=== PATIENT | male | born 1950 | race Caucasian/White ===

== ENCOUNTER 2018-04-18 00:49 | Outpatient (CLI) | payer MEDICARE, MEDICAID, SELFPAY ==
--- NOTE | 2018-04-18 15:27 | DI.US_ITS ---
SYMPTOM/DIAGNOSIS: VARICOSE VEINS BOTH LOWER LEGS, PAIN, I83.813, S/P SURGERY, DVT DUPLEX VENOUS ULTRASOUND LEFT LOWER EXTREMITY: Duplex evaluation of the deep venous system of the left lower extremity was performed according to the usual protocol. There is no evidence of deep venous thrombosis. There is occlusive thrombus in the left greater saphenous vein approximately extending to less than 1 cm. from the CFV junction. No other significant superficial thrombus identified.
--- NOTE | 2018-04-18 16:42 | DI.VRAD_ITS ---
EXAM: US Left Duplex Lower Extremity Veins, Limited EXAM DATE/TIME: 04/18/2018 4:17 PM CLINICAL HISTORY: 67 years old, male; Pain; Leg, upper; Left; Prior surgery; Surgery date: 3-7 days post-operative; Surgery type: Left rf ablation of saph vein TECHNIQUE: Real-time Duplex ultrasound scan of the Left lower extremity with 2-D vazquez scale, color Doppler flow and spectral waveform analysis. Limited exam focused on the left lower extremity veins. COMPARISON: No relevant prior studies available. FINDINGS: Left deep veins: Unremarkable. The common femoral, femoral and popliteal veins are patent without thrombus. Normal compressibility, augmentation response and Doppler waveforms. Left superficial veins: Thrombus greater saphenous vein to the knee. Saphenofemoral junction is patent. Soft tissues: Unremarkable. IMPRESSION: 1. No DVT left lower extremity. 2. Thrombus greater saphenous vein to the knee. Dictated and Authenticated by: Fawad Montano MD. Ordering:RISHI CRAWFORD MD
== END 2018-04-18 01:09 ==
PROVIDERS: PCP General Practice; Visit Provider Surgery Vascular Surgery
DX: M79.662 Pain in left lower leg (principal); I82.812 Embolism and thrombosis of superficial veins of left lower extremity; I83.813 Varicose veins of bilateral lower extremities with pain; M79.661 Pain in right lower leg
CPT/HCPCS: 93971

== ENCOUNTER 2019-09-09 02:28 | Outpatient (CLI) | payer OTHER, SELFPAY ==
[2019-09-09 10:36] LABS: ALT 20 U/L (16-63); AST 17 U/L (15-37); Albumin 4.1 g/dL (3.4-5.0); Alkaline Phosphatase 44 U/L (46-116); Anion Gap 6.2 mmol/L (3-11); BUN 16 mg/dL (7-18); Bilirubin, Total 1.4 mg/dL (0.2-1.0); CO2 31.8 mmol/L (21.0-32.0); CREATININE 0.86 mg/dL (0.70-1.30); Calcium 8.9 mg/dL (8.5-10.1); Calculated LDL 89 mg/dL (<100); Chloride 104 mmol/L (98-107); Cholesterol 170 mg/dL (<200); Glucose 91 mg/dL (74-106); HDL Cholesterol 74 mg/dL (40-60); Potassium 4.5 mmol/L (3.5-5.1); Sodium 142 mmol/L (136-145); Triglyceride 36 mg/dL (<150)
== END 2019-09-09 02:48 ==
PROVIDERS: PCP Student in an Organized Health Care Education/Training Program; Visit Provider Student in an Organized Health Care Education/Training Program
DX: Z13.1 Encounter for screening for diabetes mellitus (principal); Z79.1 Long term (current) use of non-steroidal anti-inflammatories (NSAID); Z83.3 Family history of diabetes mellitus; Z13.220 Encounter for screening for lipoid disorders
CPT/HCPCS: 36415; 80053; 80061

== ENCOUNTER → 2021-12-26 00:16 | Outpatient (CLI) | payer MEDICARE, SELFPAY ==
--- NOTE | 2021-12-26 13:52 | DI.RAD_ITS ---
Exam(s) XR LUMBAR SPINE COMPLETE EXAM: XR LUMBAR SPINE COMPLETE CLINICAL HISTORY: Recurrence of R sided sciatica, LUMBAR DISC HERNIATION, M51.26. TECHNIQUE: 2D digital imaging was performed. Five views. COMPARISON: No exams were available for comparison FINDINGS: Vertebral bodies are well maintained in height. There are small endplate osteophytes throughout. Th ere is mild narrowing of the L2-3 and L4-5 disc spaces. No spondylolysis or spondylolisthesis is see n. SI joints are unremarkable. IMPRESSION: Mild degenerative changes. DATA REPOSITORY: RADIATION DOSE DELIVERED:
== END ==
PROVIDERS: PCP Student in an Organized Health Care Education/Training Program; Visit Provider Family Medicine
DX: M51.26 Other intervertebral disc displacement, lumbar region (principal); M51.16 Intervertebral disc disorders with radiculopathy, lumbar region
CPT/HCPCS: 72110

== ENCOUNTER → 2022-01-18 01:30 | Outpatient (CLI) | payer MEDICARE, SELFPAY ==
--- NOTE | 2022-01-18 07:15 | DI.MRI_ITS ---
Exam(s) MR LUMBAR SPINE WO EXAM: MR LUMBAR SPINE WO CLINICAL HISTORY: R sided sciatica,M54.31. TECHNIQUE: Multiplanar multisequence MRI of the Lumbar spine was performed. COMPARISON: CR XR LUMBAR SPINE COMPLETE from 12/26/2021 FINDINGS: Bones: The last intervertebral disc space is designated the L5/S1 level for the numbering purpose of this examination. The vertebral body heights are well maintained. Alignment is satisfactory. Endpla te degenerative signal changes are seen in the lumbar spine particularly at the L2-L3 level. Cord: The conus tip ends at the T12 level. It is of normal size and signal intensity. T12-L1: No disc herniations or bulges are present. No central spinal canal or neural foraminal stenos is. L1-2: No disc herniations or bulges are present. No central spinal canal or neural foraminal stenosis . L2-3: There is a mild diffuse disc bulge. Hypertrophic changes of the ligamentum flavum and is noted . There is mild narrowing of the central spinal canal. No significant right neural foraminal stenos is is seen. There is mild left neural foraminal stenosis. L3-4: There is a mild diffuse disc bulge. There are hypertrophic changes of the facets and ligamentu m flavum. Mild narrowing of the central spinal canal is noted. No significant neural foraminal sten osis is seen. L4-5: There is a diffuse disc bulge. There are hypertrophic changes of the facets and ligamentum fla vum. These all contribute to cause moderately severe central spinal canal stenosis. There is modera te right and mild left neural foraminal stenosis. L5-S1: There is a mild diffuse disc bulge. No central spinal canal or neural foraminal stenosis. Soft tissues: The visualized SI joints and sacrum are well maintained. The paraspinal soft tissues ar e unremarkable. IMPRESSION: 1. Multilevel degenerative changes in the lumbar spine as described above. 2. Findings are most marked at the L4-L5 level where there is moderately severe central spinal canal stenosis and bilateral neural foraminal stenosis. DATA REPOSITORY:
== END ==
PROVIDERS: PCP Student in an Organized Health Care Education/Training Program; Visit Provider Family Medicine
DX: M51.16 Intervertebral disc disorders with radiculopathy, lumbar region; M48.061 Spinal stenosis, lumbar region without neurogenic claudication
CPT/HCPCS: 72148